=== PATIENT | male | born 1960 | race African-American/Black ===

== ENCOUNTER 2022-02-20 14:16 | Inpatient (IN) | payer OTHER ==
[2022-02-20 15:01] VITALS: BMI 21.6
[2022-02-20] MEDS ORDERED: BENZOCAINE/MENTHOL (CHLORASEPTIC ) LOZENGE MM PRN (18:15)
[2022-02-20] MEDS ORDERED: NICOTINE 10 MG CARTRIDGE (INHALER) IH PRN (18:15)
[2022-02-20] MEDS ORDERED: MAGNESIUM CITRATE 300 ML BOTTLE PO PRN (18:15)
[2022-02-20] MEDS ORDERED: METHOCARBAMOL 500 MG TABLET PO PRN (18:15)
[2022-02-20] MEDS ORDERED: IBUPROFEN 400 MG TABLET (FP) PO PRN (18:15)
[2022-02-20] MEDS ORDERED: ACETAMINOPHEN 325 MG TABLET (FP) PO PRN ×2 (18:15)
[2022-02-20] MEDS ORDERED: MAGNESIUM HYDROX 2400MG/30ML ORAL SUSPENSION 30 ML CUP PO PRN (18:15)
[2022-02-20] MEDS ORDERED: IBUPROFEN 600 MG TABLET (FP) PO PRN (18:15)
[2022-02-20] MEDS ORDERED: LOPERAMIDE HCL 2 MG CAPSULE PO PRN (18:15)
[2022-02-20] MEDS ORDERED: DICYCLOMINE HCL 10 MG CAPSULE PO PRN (18:15)
[2022-02-20] MEDS ORDERED: BISMUTH SUBSALICYLATE 524 MG/30 ML PO PRN (18:15)
[2022-02-20] MEDS ORDERED: chlordiazePOXIDE HCL 25 MG CAPSULE PO PRN (18:15)
[2022-02-20] MEDS ORDERED: MAG HYDROX/AL HYDROX/SIMETH 30 ML UNIT-DOSE CUP PO PRN (18:15)
[2022-02-20] MEDS ORDERED: ONDANSETRON *ODT* 4 MG TABLET SL PRN (18:15)
[2022-02-20] MEDS: MELATONIN 5 MG TABLETS PO SCH (23:18)
[2022-02-20] MEDS: THIAMINE HCL 100 MG TABLET (FP) PO SCH (23:18)
[2022-02-20] MEDS: hydrOXYzine PAMOATE 25 MG CAPSULE (FP) PO SCH (23:20)
[2022-02-20] MEDS: chlordiazePOXIDE HCL 25 MG CAPSULE PO SCH ×2 (23:20→23:30)
[2022-02-21] MEDS: hydrOXYzine PAMOATE 25 MG CAPSULE (FP) PO SCH ×5 (06:44→22:27)
[2022-02-21] MEDS: chlordiazePOXIDE HCL 25 MG CAPSULE PO SCH ×4 (06:44→22:27)
[2022-02-21 10:38] LABS: HEMATOCRIT 40.6 % (35.4-49); HEMOGLOBIN 13.6 GM/dL (11.7-16.9); MCH 31.7 pg (25.7-33.7); MCHC 33.4 g/dl (32.0-35.9); MEAN CELL VOLUME 94.9 fl (80-96); PLATELET COUNT 257 10^3/uL (134-434); RBC 4.28 M/mm3 (4.00-5.60); RDW 13.4 % (11.9-15.9); WHITE BLOOD COUNT 4.1 K/mm3 (4.0-10.0)
[2022-02-21 10:40] LABS: CALCIUM 9.9 mg/dL (8.5-10.1)
[2022-02-21 10:43] LABS: ALBUMIN 3.5 g/dl (3.4-5.0)
[2022-02-21 10:46] LABS: BILIRUBIN,TOTAL 0.4 mg/dL (0.2-1); TOT PROT 7.4 g/dl (6.4-8.2)
[2022-02-21] MEDS: PRENATAL VITAMINS W/ FOLIC ACID TABLET (FP) PO SCH (10:50)
[2022-02-21] MEDS: OFLOXACIN 0.3% OPHTHALMIC SOLUTION 5 ML BOTTLE OS SCH ×3 (17:41→22:27)
[2022-02-21] MEDS: BRIMONIDINE TARTRATE 0.15% OPHTHALMIC 5 ML BOTTLE OS SCH (18:52)
[2022-02-21] MEDS: LATANOPROST 0.005% OPHTH SOLN 2.5ML BOTTLE OS SCH (22:26)
[2022-02-21] MEDS: TIMOLOL 0.5% OPHTHALMIC SOL 5 ML BOTTLE OS SCH (22:26)
[2022-02-21] MEDS: THIAMINE HCL 100 MG TABLET (FP) PO SCH (22:27)
[2022-02-21] MEDS: DORZOLAMIDE 2% HCL OPHTHALMIC SOLUTION 10 ML BOTTLE OS SCH (22:27)
[2022-02-21] MEDS: MELATONIN 5 MG TABLETS PO SCH (22:27)
[2022-02-22] MEDS: hydrOXYzine PAMOATE 25 MG CAPSULE (FP) PO SCH ×5 (05:52→22:47)
[2022-02-22] MEDS: chlordiazePOXIDE HCL 25 MG CAPSULE PO SCH ×4 (05:53→22:47)
[2022-02-22] MEDS: PRENATAL VITAMINS W/ FOLIC ACID TABLET (FP) PO SCH (10:46)
[2022-02-22] MEDS: OFLOXACIN 0.3% OPHTHALMIC SOLUTION 5 ML BOTTLE OS SCH ×4 (10:47→22:51)
[2022-02-22] MEDS: TIMOLOL 0.5% OPHTHALMIC SOL 5 ML BOTTLE OS SCH ×2 (10:48→22:52)
[2022-02-22] MEDS: DORZOLAMIDE 2% HCL OPHTHALMIC SOLUTION 10 ML BOTTLE OS SCH ×2 (10:48→22:52)
[2022-02-22] MEDS: BRIMONIDINE TARTRATE 0.15% OPHTHALMIC 5 ML BOTTLE OS SCH (10:48)
[2022-02-22] MEDS: THIAMINE HCL 100 MG TABLET (FP) PO SCH (22:47)
[2022-02-22] MEDS: MELATONIN 5 MG TABLETS PO SCH (22:48)
[2022-02-22] MEDS: LATANOPROST 0.005% OPHTH SOLN 2.5ML BOTTLE OS SCH (22:51)
[2022-02-23] MEDS ORDERED: chlordiazePOXIDE HCL 10 MG CAPSULE PO PRN
[2022-02-23] MEDS: chlordiazePOXIDE HCL 10 MG CAPSULE PO SCH ×4 (07:19→23:24)
[2022-02-23] MEDS: hydrOXYzine PAMOATE 25 MG CAPSULE (FP) PO SCH ×6 (07:20→23:20)
[2022-02-23] MEDS: PRENATAL VITAMINS W/ FOLIC ACID TABLET (FP) PO SCH (11:05)
[2022-02-23] MEDS: TIMOLOL 0.5% OPHTHALMIC SOL 5 ML BOTTLE OS SCH (11:06)
[2022-02-23] MEDS: DORZOLAMIDE 2% HCL OPHTHALMIC SOLUTION 10 ML BOTTLE OS SCH ×2 (11:06→23:21)
[2022-02-23] MEDS: BRIMONIDINE TARTRATE 0.15% OPHTHALMIC 5 ML BOTTLE OS SCH (11:06)
[2022-02-23] MEDS: OFLOXACIN 0.3% OPHTHALMIC SOLUTION 5 ML BOTTLE OS SCH ×4 (11:07→23:19)
[2022-02-23 17:58] VITALS: RESP 18
[2022-02-23] MEDS: MELATONIN 5 MG TABLETS PO SCH (23:20)
[2022-02-23] MEDS: LATANOPROST 0.005% OPHTH SOLN 2.5ML BOTTLE OS SCH (23:21)
[2022-02-23] MEDS: THIAMINE HCL 100 MG TABLET (FP) PO SCH (23:22)
[2022-02-24] MEDS: TIMOLOL 0.5% OPHTHALMIC SOL 5 ML BOTTLE OS SCH ×3 (05:02→21:27)
[2022-02-24] MEDS: chlordiazePOXIDE HCL 10 MG CAPSULE PO SCH ×2 (07:00→18:19)
[2022-02-24] MEDS: hydrOXYzine PAMOATE 25 MG CAPSULE (FP) PO SCH ×5 (07:00→21:25)
[2022-02-24] MEDS: BRIMONIDINE TARTRATE 0.15% OPHTHALMIC 5 ML BOTTLE OS SCH (11:06)
[2022-02-24] MEDS: OFLOXACIN 0.3% OPHTHALMIC SOLUTION 5 ML BOTTLE OS SCH ×4 (11:06→21:26)
[2022-02-24] MEDS: DORZOLAMIDE 2% HCL OPHTHALMIC SOLUTION 10 ML BOTTLE OS SCH ×2 (11:07→21:27)
[2022-02-24] MEDS: PRENATAL VITAMINS W/ FOLIC ACID TABLET (FP) PO SCH (11:07)
[2022-02-24] MEDS: THIAMINE HCL 100 MG TABLET (FP) PO SCH (21:25)
[2022-02-24] MEDS: MELATONIN 5 MG TABLETS PO SCH (21:25)
[2022-02-24] MEDS: LATANOPROST 0.005% OPHTH SOLN 2.5ML BOTTLE OS SCH (21:26)
[2022-02-25] MEDS ORDERED: chlordiazePOXIDE HCL 10 MG CAPSULE PO ONE (05:00)
[2022-02-25] MEDS: hydrOXYzine PAMOATE 25 MG CAPSULE (FP) PO SCH ×5 (06:17→22:42)
[2022-02-25] MEDS: PRENATAL VITAMINS W/ FOLIC ACID TABLET (FP) PO SCH (10:37)
[2022-02-25] MEDS: OFLOXACIN 0.3% OPHTHALMIC SOLUTION 5 ML BOTTLE OS SCH ×4 (10:38→22:47)
[2022-02-25] MEDS: TIMOLOL 0.5% OPHTHALMIC SOL 5 ML BOTTLE OS SCH ×2 (10:39→22:47)
[2022-02-25] MEDS: DORZOLAMIDE 2% HCL OPHTHALMIC SOLUTION 10 ML BOTTLE OS SCH ×2 (10:39→22:47)
[2022-02-25] MEDS: BRIMONIDINE TARTRATE 0.15% OPHTHALMIC 5 ML BOTTLE OS SCH (10:40)
[2022-02-25] MEDS: THIAMINE HCL 100 MG TABLET (FP) PO SCH (22:42)
[2022-02-25] MEDS: MELATONIN 5 MG TABLETS PO SCH (22:42)
[2022-02-25] MEDS: LATANOPROST 0.005% OPHTH SOLN 2.5ML BOTTLE OS SCH (22:47)
[2022-02-26] MEDS: hydrOXYzine PAMOATE 25 MG CAPSULE (FP) PO SCH (06:51)
[2022-02-26 09:13] VITALS: BP 148/97; PULSE 87; TEMP 97.8
== END 2022-02-26 10:38 | disposition home or self-care (01) | DRG 775 ==
LOC: YASAS 14:16 → Y3N 19:52
PROVIDERS: ADMIT Allergy & Immunology; ATTEND Surgery
PROC: HZ2ZZZZ Detoxification Services for Substance Abuse Treatment (ICD-10-PCS; principal; 2022-02-20)
DX: F10.230 Alcohol dependence with withdrawal, uncomplicated (principal); F12.10 Cannabis abuse, uncomplicated; F17.210 Nicotine dependence, cigarettes, uncomplicated; F33.0 Major depressive disorder, recurrent, mild; R03.0 Elevated blood-pressure reading, without diagnosis of hypertension; H25.89 Other age-related cataract; W01.0XXA Fall on same level from slipping, tripping and stumbling without subsequent striking against object, initial encounter; Y93.89 Activity, other specified; Y92.238 Other place in hospital as the place of occurrence of the external cause; Z56.0 Unemployment, unspecified; Z59.00 Homelessness unspecified
CPT/HCPCS: 36415; 80053; 85027; 86780; 87811; C9803-CS; U0003; U0005